=== PATIENT | female | born 2000 | race Caucasian/White ===

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

== ENCOUNTER 2023-05-26 10:44 | Emergency (ER) | payer OTHER ==
[2023-05-26 11:04] VITALS: BP 102/63; PULSE 96; RESP 18; TEMP 97.5; BMI 19.2
[2023-05-26] MEDS: SODIUM CHLORIDE 0.9% 500 ML INFUS.BAG IV ONE ×2 (11:36→13:01)
[2023-05-26 11:54] LABS: BASO % 0.2 % (0-2.0); HEMATOCRIT 36.7 % (32.4-45.2); HEMOGLOBIN 12.4 GM/dL (10.7-15.3); LYMPH % 14.7 % (8-40); MCH 29.6 pg (25.7-33.7); MCHC 33.8 g/dl (32.0-36.0); MEAN CELL VOLUME 87.6 fl (80-96); MONO % 8.1 % (3.8-10.2); PLATELET COUNT 192 10^3/uL (134-434); RBC 4.19 M/mm3 (3.60-5.2); RDW 13.3 % (11.6-15.6); WHITE BLOOD COUNT 4.2 K/mm3 (4.0-10.0)
[2023-05-26 11:56] LABS: POTASSIUM 4.1 mmol/L (3.5-5.1)
[2023-05-26 11:58] LABS: CALCIUM 8.5 mg/dL (8.5-10.1)
[2023-05-26 11:59] LABS: MAGNESIUM 1.9 mg/dL (1.8-2.4)
[2023-05-26 11:59] LABS: BLOOD UREA NITROGEN 12.5 mg/dL (7-18)
[2023-05-26 12:02] LABS: CREATININE 0.9 mg/dL (0.55-1.3)
[2023-05-26 12:03] LABS: BILIRUBIN,TOTAL 0.4 mg/dL (0.2-1); TOT PROT 8.2 g/dl (6.4-8.2)
[2023-05-26] MEDS ORDERED: KETOROLAC TROMETHAMINE 15 MG/ML VIAL ONE (13:13)
[2023-05-26] MEDS: KETOROLAC TROMETHAMINE 15 MG/ML VIAL IVPUSH ONE (13:14)
== END 2023-05-26 14:34 | disposition home or self-care (01) ==
LOC: JER 10:44
PROC: 3E0333Z Introduction of Anti-inflammatory into Peripheral Vein, Percutaneous Approach (ICD-10-PCS; principal; 2023-05-26)
DX: R55 Syncope and collapse (principal); R42 Dizziness and giddiness; R50.9 Fever, unspecified; R09.81 Nasal congestion; R05.9 Cough, unspecified; J10.1 Influenza due to other identified influenza virus with other respiratory manifestations; Z20.822 Contact with and (suspected) exposure to COVID-19
CPT/HCPCS: 0241U-QW; 36415; 71046-TC-FY; 80053; 82550; 83735; 84443; 84484; 84703; 85025; 85379; 93005; 93010; 99285-25